=== PATIENT | female | born 1975 | race African-American/Black ===

== ENCOUNTER 2020-08-04 01:28 | Emergency (ER) | payer MEDICARE, OTHER ==
[~2020-08-04] VITALS: Ht 162.6 cm; Wt 88.3 kg
[2020-08-04] MEDS ORDERED: METHOCARBAMOL 1,000 MG/10 ML VIAL (J2800) IV ONE (04:40)
[2020-08-04] MEDS ORDERED: KETOROLAC 30 MG/ML 1ML VIAL IV ONE (04:40)
[2020-08-04] MEDS ORDERED: METH-1165 PO (06:07)
[2020-08-04] MEDS ORDERED: NAPR-837 PO (06:07)
[2020-08-04 06:16] VITALS: BP 126/58
== END 2020-08-04 06:17 | disposition home or self-care (01) ==
LOC: M ED 02:18
DX: M62.830 Muscle spasm of back (principal)
CPT/HCPCS: 96374; 96375; 99284; J1885; J2800